=== PATIENT | female | born 1990 | race Caucasian/White ===

== ENCOUNTER 2021-12-24 14:10 | Emergency (ER) | payer OTHER ==
[~2021-12-24] VITALS: Ht 149.9 cm; Wt 54.5 kg
[2021-12-24 14:23] VITALS: BP 114/65
[2021-12-24 16:32] LABS: COVID AG,FIA SOURCE NASAL SWAB
[2021-12-24 16:53] LABS: INFLUENZA TYPE A NEGATIVE FOR TYPE A (NEGATIVE); INFLUENZA TYPE B NEGATIVE FOR TYPE B (NEGATIVE)
[2021-12-24] MEDS ORDERED: IBUP-2070 PO (18:14)
[2021-12-24] MEDS ORDERED: BENZ-70 PO (18:14)
[2021-12-24] MEDS ORDERED: BENZ1LOZ50 PO (18:14)
== END 2021-12-24 18:23 | disposition home or self-care (01) ==
LOC: EMS 14:10
DX: B34.9 Viral infection, unspecified (principal); Z20.822 Contact with and (suspected) exposure to COVID-19
CPT/HCPCS: 71046; 87804; 99284

== ENCOUNTER 2022-05-01 15:23 | Emergency (ER) | payer OTHER ==
[~2022-05-01] VITALS: Ht 149.9 cm; Wt 54.5 kg
[~2022-05-01 15:23] MED LIST: BENZ-70 PO; BENZ1LOZ50 PO; IBUP-2070 PO
[2022-05-01 15:27] VITALS: BP 113/63
== END 2022-05-01 16:27 | disposition home or self-care (01) ==
LOC: EMS 15:23
DX: D23.4 Other benign neoplasm of skin of scalp and neck (principal)
CPT/HCPCS: 99282; Z7502